=== PATIENT | female | born 1975 | race Caucasian/White ===

== ENCOUNTER 2024-09-08 12:48 | Emergency (ER) | payer BC ==
[~2024-09-08 12:48] MED LIST: Iopamidol 370 76% 100 ML VIAL ONE
[2024-09-08] MEDS ORDERED: Ketorolac Tromethamine 30 MG (1 mL) VIAL ONE (13:43)
[2024-09-08] MEDS ORDERED: Ondansetron PF 4 MG/2 ML Vial ONE (13:44)
[2024-09-08 13:45] LABS: #Basophils 0.1 thou/uL (0.0-0.2); #Eosinophils 0.1 thou/uL (0.0-0.7); #Lymphocytes 1.7 thou/uL (1.20-3.40); #Monocytes 0.6 thou/uL (0.11-0.59); #Neutrophils 7.5 thou/uL (1.40-6.50); %Basophils 0.8 % (0.0-1.0); %Eosinophils 0.9 % (0.0-10.0); %Lymphocytes 17.3 % (21.0-51.0); %Monocytes 5.6 % (0.0-10.0); %Neutrophils 75.5 % (42.0-75.0); Hematocrit 30.1 % (36.0-47.0); Hemoglobin 9.9 g/dL (12.0-16.0); Mean Corpuscular Hemoglobin 30.0 pg (27.0-31.0); Mean Corpuscular Volume 90.7 fl (78.0-98.0); Platelet Count 245 10x3/uL (130-400); Red Blood Cell (RBC) Count 3.31 mill/uL (4.20-5.40); White Blood Cell (WBC) Count 10.0 10x3/uL (4.8-10.8)
[2024-09-08 13:59] LABS: Troponin I Less than 0.010 ng/mL (< 0.028)
[2024-09-08 14:03] LABS: ALT (SGPT) 14 U/L (Less than 34); AST (SGOT) 26 U/L (11-34); Albumin 3.2 g/dL (3.1-4.5); Alkaline Phosphatase 126 U/L (40-110); Anion Gap 13 mmol/L (10-20); BUN (Urea Nitrogen) 30 mg/dL (7.0-18.7); Bilirubin, Total 0.2 mg/dL (0.3-1.2); Calc. Creatinine Clearance 0 mL/min (70-130); Calcium 8.8 mg/dL (7.8-10.44); Carbon Dioxide 18 mmol/L (22-29); Chloride 112 mmol/L (98-107); Globulin 4.8 g/dL (2.4-3.5); Glucose 163 mg/dL (70-105); Potassium 5.6 mmol/L (3.5-5.1); Sodium 137 mmol/L (136-145)
[2024-09-08] MEDS ORDERED: Calcium Gluc 4.6 MEQ/10 ML (100 MG/ML) ONE (14:53)
[2024-09-08 16:09] LABS: Anion Gap 10 mmol/L (10-20); BUN (Urea Nitrogen) 28 mg/dL (7.0-18.7); Calc. Creatinine Clearance 0 mL/min (70-130); Calcium 8.6 mg/dL (7.8-10.44); Carbon Dioxide 18 mmol/L (22-29); Chloride 114 mmol/L (98-107); Glucose 117 mg/dL (70-105); Potassium 4.7 mmol/L (3.5-5.1); Sodium 137 mmol/L (136-145)
[2024-09-08 16:19] LABS: Bicarbonate (HCO3v) 16.1 mmol/L (22.0-28.0); CO2 Tension (PvCO2) 32.8 mmHg (42.0-51.0); Calcium, Ionized 1.17 mmol/L (1.15-1.33); Chloride 113 mmol/L (98-107); Hemoglobin - Calc 8.9 g/dL (12.0-16.0); Potassium 5.0 mmol/L (3.5-5.1); Sodium 142 mmol/L (138-145); T. Carbon Dioxide 17.1 mmol/L (22.0-28.0); vO2 Saturation-calc 87.4 % (60.0-85.0)
[2024-09-08 16:56] LABS: Glucose, Urine (Dipstick) Negative (Negative); Leukocyte Negative (Negative); Protein, Urine (Dipstick) Trace mg/dL (Neg-Trace); Specific Gravity, Urine 1.010 (1.005-1.030)
[2024-09-08 17:03] LABS: CAUTI Indications for Culture Alt mental st,lethar; RBC/HPF 0-3 HPF (0-3)
[2024-09-08 17:04] LABS: Bacteria/HPF 3+ HPF (None Seen); Urine Culture Reflex No No
== END 2024-09-08 17:14 | disposition home or self-care (01) ==
LOC: NAV ERS 12:48
DX: R55 Syncope and collapse (principal); S43.402A Unspecified sprain of left shoulder joint, initial encounter; S00.03XA Contusion of scalp, initial encounter; R59.0 Localized enlarged lymph nodes; E11.22 Type 2 diabetes mellitus with diabetic chronic kidney disease; N18.9 Chronic kidney disease, unspecified; D63.1 Anemia in chronic kidney disease; E87.20 Acidosis, unspecified; E11.40 Type 2 diabetes mellitus with diabetic neuropathy, unspecified; Z79.85 Long-term (current) use of injectable non-insulin antidiabetic drugs; Z79.4 Long term (current) use of insulin; W18.12XA Fall from or off toilet with subsequent striking against object, initial encounter; Y93.89 Activity, other specified
CPT/HCPCS: 36416; 70450; 71260; 72125; 74177; 80053; 81001; 82330; 82803; 84443; 84484; 85025; 93005; 96365; 96375; 36415-59; J0612; J1885; J2405; J7030; Q9967